=== PATIENT | female | born 1980 ===

== ENCOUNTER 2021-09-06 11:54 | Outpatient (CLI) | payer OTHER | END 2021-09-06 12:33 | disposition home or self-care (01) | LOC: SONOGRAMA 11:54 | PROVIDERS: ATTEND Pathology Anatomic Pathology & Clinical Pathology | DX: E04.2 Nontoxic multinodular goiter (principal) ==

== ENCOUNTER 2024-01-01 11:44 | Outpatient (CLI) | payer OTHER | END 2024-01-01 11:48 | disposition home or self-care (01) | LOC: SONOGRAMA 11:44 | PROVIDERS: ATTEND Pathology Anatomic Pathology & Clinical Pathology | DX: D44.0 Neoplasm of uncertain behavior of thyroid gland (principal); D34 Benign neoplasm of thyroid gland; E07.89 Other specified disorders of thyroid; E04.2 Nontoxic multinodular goiter ==